=== PATIENT | male | born 1955 | race Two or more races ===

== ENCOUNTER 2023-10-14 12:15 | Inpatient (IN) | payer OTHER ==
[~2023-10-14] VITALS: Ht 175.3 cm; Wt 81.6 kg
[2023-10-21] MEDS ORDERED: BUPIVACAINE HCL 30 ML VIAL IJ ONE (13:30)
[2023-10-21] MEDS ORDERED: CEFTRIAXONE SODIUM 2,000 MG VIAL IV ONE (13:30)
[2023-10-21] MEDS ORDERED: LIDOCAINE HCL 1%/EPINEPHRINE 20ML VIAL IJ ONE (13:30)
[2023-10-21] MEDS ORDERED: METRONIDAZOLE/SODIUM CHLORIDE 500 MG/100 ML PIGGYBACK IV ONE (13:30)
[2023-10-21] MEDS ORDERED: OxyCODONE HCL 5 MG TABLET (ROXICODONE) PO PRN (14:30)
[2023-10-21] MEDS ORDERED: MORPHINE SULFATE 4 MG/ML CARTRIDGE IV PRN (14:30)
[2023-10-21] MEDS ORDERED: ONDANSETRON HCL 2 MG/ML VIAL IV PRN (14:30)
[2023-10-21] MEDS ORDERED: RINGERS SOLUTION,LACTATED 1,000 ML IV SCH (14:30)
[2023-10-21] MEDS ORDERED: DEXTROSE 50 % IN WATER 0.5 G/ML DISP.SYRIN IV PRN (14:30)
[2023-10-21] MEDS ORDERED: HYOSCYAMINE SULFATE 0.125 MG TAB.SUBL SL SCH (17:00)
[2023-10-21] MEDS ORDERED: POLYETHYLENE GLYCOL 3350 17 GM BLIST.PACK PO SCH (17:00)
[2023-10-21] MEDS ORDERED: GABAPENTIN 300 MG CAPSULE PO SCH (17:00)
[2023-10-21 17:02] LABS: HEMATOCRIT 47.3 % (39.0-48.0); HEMOGLOBIN 16.3 g/dL (13-16.00); MEAN CELL VOLUME 92.5 fL (80.0-100.00); MEAN CORPUSCULAR HEMOGLOBIN 31.8 pg (27.00-32.0); MEAN CORPUSCULAR HGB CONC 34.4 g/dl (32.0-36.0); PLATELET COUNT 271 K/uL (150-450); RED BLOOD COUNT 5.12 M/uL (4.00-6.00); RED CELL DISTRIBUTION WIDTH 12.7 % (11.5-14.5)
[2023-10-21 17:26] LABS: ALBUMIN 3.9 gm/dL (3.4-5.0); CALCIUM 8.6 mg/dL (8.5-10.1); CREATININE SERUM 1.07 mg/dL (0.70-1.30); GFR 68.52; MAGNESIUM 2.3 mg/dL (1.8-2.4); PHOSPHOROUS 3.4 mg/dL (2.5-4.9); POTASSIUM 5.55 mEq/L (3.5-5.1)
[2023-10-21] MEDS ORDERED: ACETAMINOPHEN 500 MG GEL..CAP PO SCH (20:00)
[2023-10-21] MEDS ORDERED: FAMOTIDINE/PF 20 MG/2 ML VIAL IV PUSH SCH (21:00)
[2023-10-22 06:49] LABS: HEMATOCRIT 44.8 % (39.0-48.0); HEMOGLOBIN 15.9 g/dL (13-16.00); MEAN CELL VOLUME 91.9 fL (80.0-100.00); MEAN CORPUSCULAR HEMOGLOBIN 32.5 pg (27.00-32.0); MEAN CORPUSCULAR HGB CONC 35.4 g/dl (32.0-36.0); PLATELET COUNT 310 K/uL (150-450); RED BLOOD COUNT 4.88 M/uL (4.00-6.00); RED CELL DISTRIBUTION WIDTH 12.8 % (11.5-14.5)
[2023-10-22 07:11] LABS: ALBUMIN 3.7 gm/dL (3.4-5.0); CALCIUM 8.4 mg/dL (8.5-10.1); CREATININE SERUM 0.95 mg/dL (0.70-1.30); GFR 78.61; PHOSPHOROUS 3.5 mg/dL (2.5-4.9); POTASSIUM 4.75 mEq/L (3.5-5.1)
[2023-10-22] MEDS ORDERED: LACTULOSE 20 G/30 ML BLIST.PACK PO SCH (09:00)
[2023-10-22] MEDS ORDERED: ENOXAPARIN SODIUM 40 MG/0.4 ML SYRINGE SUBCUTANEO SCH (17:00)
[2023-10-23] MEDS ORDERED: ENOXAPARIN SODIUM 40 MG/0.4 ML SYRINGE SUBCUTANEO SCH (09:00)
[2023-10-24] MEDS ORDERED: HYOSCYAMINE0.125 M1 SL (08:40)
[2023-10-24] MEDS ORDERED: POLY119PG PO (08:41)
[2023-10-24] MEDS ORDERED: GABAPENTIN300 MG PO (08:41)
[2023-10-24] MEDS ORDERED: PAIN RELIEVER500 M2 PO (08:41)
[2023-10-24] MEDS ORDERED: INTESTINEX680 M1 PO (08:42)
== END 2023-10-24 12:05 | disposition home or self-care (01) | DRG 331 ==
LOC: O/R 10-21 05:59 → SURH 10-21 07:00
PROVIDERS: ADMIT Surgery; ATTEND Surgery
PROC: 0DJD8ZZ Inspection of Lower Intestinal Tract, Via Natural or Artificial Opening Endoscopic (ICD-10-PCS; 2023-10-21)
PROC: 0DBP4ZZ Excision of Rectum, Percutaneous Endoscopic Approach (ICD-10-PCS; 2023-10-21)
PROC: 0DTN4ZZ Resection of Sigmoid Colon, Percutaneous Endoscopic Approach (ICD-10-PCS; principal; 2023-10-21 07:00)
DX: D12.4 Benign neoplasm of descending colon (principal); D37.4 Neoplasm of uncertain behavior of colon; R59.0 Localized enlarged lymph nodes

== ENCOUNTER 2024-11-03 11:50 | Outpatient (CLI) | payer OTHER ==
[~2024-11-03 11:50] MED LIST: GABAPENTIN300 MG PO; HYOSCYAMINE0.125 M1 SL; INTESTINEX680 M1 PO; PAIN RELIEVER500 M2 PO; POLY119PG PO
== END 2024-11-03 12:03 | disposition home or self-care (01) ==
LOC: TOM 11:50
PROVIDERS: ATTEND Surgery
DX: D12.4 Benign neoplasm of descending colon (principal); D37.4 Neoplasm of uncertain behavior of colon; R59.0 Localized enlarged lymph nodes
CPT/HCPCS: 74177; Q9965